=== PATIENT | male | born 1950 | race Caucasian/White ===

== ENCOUNTER 2017-06-23 10:03 | Emergency (ER) | payer OTHER ==
[~2017-06-23] VITALS: Ht 193 cm; Wt 90.7 kg
[~2017-06-23 10:03] MED LIST: FLONASE 0.05%50 MCG NASAL; NAPROSYN500 MG PO
[2017-06-23] MEDS ORDERED: BACTRIM DS TAB1 EACH PO (10:22)
[2017-06-23] MEDS ORDERED: IBUPROFEN 600600 M1 PO (10:22)
[2017-06-23 11:32] VITALS: BP 142/92
== END 2017-06-23 11:33 | disposition home or self-care (01) ==
LOC: ER 10:03
DX: L03.011 Cellulitis of right finger (principal); F17.210 Nicotine dependence, cigarettes, uncomplicated; F10.99 Alcohol use, unspecified with unspecified alcohol-induced disorder; Z88.0 Allergy status to penicillin

== ENCOUNTER 2018-09-11 13:15 | Emergency (ER) | payer OTHER ==
[~2018-09-11] VITALS: Ht 193 cm; Wt 90.7 kg
[~2018-09-11 13:15] MED LIST changes: +BACTRIM DS TAB1 EACH PO; +IBUPROFEN 600600 M1 PO
[2018-09-11 14:44] VITALS: BP 158/122
== END 2018-09-11 14:45 | disposition home or self-care (01) ==
LOC: ER 13:15
DX: M54.2 Cervicalgia (principal); F17.210 Nicotine dependence, cigarettes, uncomplicated; Z88.0 Allergy status to penicillin

== ENCOUNTER 2021-04-10 10:34 | Emergency (ER) | payer OTHER ==
[~2021-04-10] VITALS: Ht 193 cm; Wt 90.7 kg
[2021-04-10 11:29] LABS: ABSOLUTE NEUTROPHILS 5.7 thou/uL (1.4-8.2); BASOPHILS 0.6 % (0.0-2.0); EOSINOPHILS 0.5 % (0.0-3.0); HEMOGLOBIN 13.2 gm/dL (14.0-18.0); LYMPHOCYTES 9.6 % (24.0-44.0); MCH 32.9 pg (26.0-34.0); MCHC 33.8 g/dL (28.0-37.0); MCV 97.2 fL (80.0-100.0); MONOCYTES 6.1 % (1.0-8.0); PLATELET COUNT 248 thou/uL (150-400); POLYS 83.2 % (36.0-66.0); RBC 4.01 mil/uL (4.50-6.00); RDW 13.8 % (10.5-14.5); WBC 6.8 thou/uL (4.0-11.0)
[2021-04-10 11:37] LABS: CREATININE 1.5 mg/dL (0.7-1.3)
[2021-04-10 11:46] LABS: ALBUMIN 3.5 g/dL (3.4-5.0); TOTAL BILIRUBIN 0.5 mg/dL (0.2-1.0); TOTAL PROTEIN 6.7 g/dL (6.4-8.2); TROPONIN-I 0.06 ng/mL (<0.06)
--- NOTE | 2021-04-10 13:45 | EKG ---
[address] [address] [place] [address] ELECTROCARDIOGRAM REPORT Name: AICHA HENDERSON [facility] ANNISTONRadha#: [id number] Admission: 04/10/21 Attend Phys: Discharge: Date of : 50 Report #: [id number] [facility] ED Test Date: 2021-04-10 Test Time: 11:17:14 Pat Name: AICHA HENDERSON Department: Room: Gender: M Admissions Officer: rhys : 1950 Requested By: Robin Cuadra Order Number: [id number] MD: Gareth Gonzalez Measurements Intervals [place] Rate: 88 P: 41 NV: 174 QRS: -10 QRSD: 118 T: 126 QT: 384 QTc: 465 Interpretive Statements Sinus rhythm Left atrial enlargement Incomplete left bundle branch block LVH with secondary repolarization abnormality Anterior Q waves, possibly due to LVH Compared to ECG 01/08/1995 12:58:00 Atrial abnormality now present Left bundle-branch block now present Left ventricular hypertrophy now present Early repolarization now present Q waves now present Sinus bradycardia no longer present Electronically Signed On 04-10-2021 13:45:04 CDT by Gareth Gonzalez [email or web address] <ELECTRONICALLY SIGNED> By: Gareth Gonzalez MD, [facility] 04/10/21 1345 [id number] Gareth Gonzalez MD, [facility] /EPI
[2021-04-10 14:47] VITALS: BP 133/97
== END 2021-04-10 14:49 | disposition home or self-care (01) ==
LOC: ER 10:34
PROVIDERS: Physician Assistant
DX: R06.02 Shortness of breath (principal); Z20.822 Contact with and (suspected) exposure to COVID-19; I50.9 Heart failure, unspecified; F17.210 Nicotine dependence, cigarettes, uncomplicated; Z88.0 Allergy status to penicillin

== ENCOUNTER 2021-04-17 11:55 | Emergency (ER) | payer OTHER ==
[~2021-04-17] VITALS: Ht 193 cm; Wt 88.5 kg
[2021-04-17 14:06] VITALS: BP 153/112
== END 2021-04-17 14:06 | disposition home or self-care (01) ==
LOC: ER 11:55
DX: I50.9 Heart failure, unspecified (principal); F17.210 Nicotine dependence, cigarettes, uncomplicated; Z88.0 Allergy status to penicillin

== ENCOUNTER 2021-08-08 11:39 | Emergency (ER) | payer OTHER ==
[~2021-08-08] VITALS: Ht 193 cm; Wt 88.5 kg
[2021-08-08] MEDS ORDERED: CYCLOBENZAPRINE5 MG PO (12:14)
[2021-08-08 12:53] VITALS: BP 154/97
== END 2021-08-08 12:56 | disposition home or self-care (01) ==
LOC: ER 11:39
DX: M54.2 Cervicalgia (principal); G89.29 Other chronic pain; F17.210 Nicotine dependence, cigarettes, uncomplicated; Z88.0 Allergy status to penicillin

== ENCOUNTER 2021-08-24 10:06 | Emergency (ER) | payer OTHER ==
[~2021-08-24] VITALS: Ht 193 cm; Wt 88.5 kg
[~2021-08-24 10:06] MED LIST changes: +CYCLOBENZAPRINE5 MG PO
[2021-08-24 11:35] LABS: ABSOLUTE NEUTROPHILS 6.2 thou/uL (1.4-8.2); BASOPHILS 0.3 % (0.0-2.0); EOSINOPHILS 1.1 % (0.0-3.0); HEMATOCRIT 38.8 % (42.0-52.0); HEMOGLOBIN 12.8 gm/dL (14.0-18.0); MCH 32.3 pg (26.0-34.0); PLATELET COUNT 257 thou/uL (150-400); POLYS 80.6 % (36.0-66.0); RBC 3.96 mil/uL (4.50-6.00); RDW 14.3 % (10.5-14.5); WBC 7.7 thou/uL (4.0-11.0)
[2021-08-24 11:37] LABS: CALCIUM 8.6 mg/dL (8.5-10.1); CREATININE 1.3 mg/dL (0.7-1.3); POTASSIUM 4.1 mmol/L (3.5-5.1)
[2021-08-24 14:06] VITALS: BP 112/64
== END 2021-08-24 14:06 | disposition home or self-care (01) ==
LOC: ER 10:06
PROVIDERS: Emergency Medicine
DX: F22 Delusional disorders (principal); I50.9 Heart failure, unspecified; F17.210 Nicotine dependence, cigarettes, uncomplicated; Z98.890 Other specified postprocedural states; Z88.0 Allergy status to penicillin